=== PATIENT | male | born 1960 | race Caucasian/White ===

== ENCOUNTER 2017-05-19 11:43 | Inpatient (IN) | payer BC ==
[~2017-05-19] VITALS: Ht 177.8 cm; Wt 106.0 kg
[~2017-05-19 11:43] MED LIST: ACTOS30 MG; ALAVERT10 MG PO; ALBUTEROL17 GM INH; AMARYL2 M1 PO; ASPIR-LOW81 MG; ATENOLOL50 MG; COREG12.5 MG PO; COREG3.125 MG; FLEXERIL10 MG PO; GLUCOPHAGE1000 M1 PO; LISINOPRIL10 MG; LISINOPRIL10 MG PO; MULTIVITAMIN1 TAB PO; NORCO 10/325 TA1 TAB PO; NORCO 5/325 TAB1 TAB PO; NORCO 5/3251 TAB PO; PLAVIX75 MG PO; SINGULAIR10 MG; ZOCOR20 MG; ZOCOR40 MG
[2017-05-19] MEDS ORDERED: COZAAR50 M1 PO (11:56)
[2017-05-19] MEDS ORDERED: MAGNESIUM (11:57)
[2017-05-19 12:49] LABS: BASO % 0.2 % (0-2); HCT-HEMATOCRIT 43.6 % (36.0-53.5); HGB-HEMOGLOBIN 15.8 gm/dl (13.5-17.0); IMMATURE GRANULOCYTES ABSOLUTE 0.01 tho/cmm (0-0.03); IMMATURE GRANULOCYTES PERCENT 0.2 % (0-0.3); LYMPH % 13.8 % (20-45); LYMPH ABSOLUTE COUNT 0.7 tho/cmm (0.8-4.5); MCH (MEAN CORPUSCULAR HGB) 32.7 pg (28.0-32.0); MCHC MEAN CORPUSCULAR HGB CONC 36.2 % (32.0-36.0); MCV (MEAN CELL VOLUME) 90.3 fl (82.0-96.0); MONOCYTE ABSOLUTE COUNT 0.4 tho/cmm (0.0-1.2); NEUTROPHIL ABSOLUTE COUNT 3.8 tho/cmm (1.6-8.0); NEUTROPHIL-AUTOMATED 3.8 tho/cmm (1.6-8.0); NEUTROPHILS % 76.8 % (40-80); PLATELET COUNT 98 tho/cmm (150-450); RED BLOOD COUNT 4.83 mil/cmm (4.40-5.70); RED CELL DISTRIBUTION WIDTH 12.2 % (12.4-16.4)
[2017-05-19 12:50] LABS: WHITE BLOOD COUNT 4.9 tho/cmm (4.0-10.0)
[2017-05-19 13:13] LABS: ALBUMIN 3.8 g/dl (3.5-5.0); ALKALINE PHOSPHATASE 65 U/L (33-138); ALT/SGPT 24 U/L (12-78); ANION GAP 11 mmol/L (0-20); AST/SGOT 24 U/L (10-40); BILIRUBIN,TOTAL 1.9 mg/dl (0.0-1.5); BLOOD UREA NITROGEN 15 mg/dl (6-24); CALCIUM 7.9 mg/dl (8.5-10.5); CARBON DIOXIDE-VENOUS 24 mmol/L (22-32); CHLORIDE 98 mmol/l (96-110); CREATININE 1.18 mg/dl (0.60-1.30); GLUCOSE 158 mg/dL (70-110); POTASSIUM 3.7 mmol/L (3.7-5.1); SODIUM 129 mmol/L (135-145); eGFR VALUE FOR BLACK 78 mL/Min
[2017-05-19 14:09] LABS: URINE APPEARANCE CLEAR; URINE BILIRUBIN NEGATIVE (NEG); URINE BLOOD NEGATIVE (NEG); URINE COLOR DARK YELLOW; URINE GLUCOSE (UA) NEGATIVE (NEG); URINE KETONE MODERATE (NEG); URINE LEUKOCYTE ESTERASE NEGATIVE (NEG); URINE NITRITE NEGATIVE (NEG); URINE PROTEIN MODERATE (NEG)
[2017-05-19 14:15] LABS: URINE EPITHELIAL CELLS RARE /[HPF] (0-10); URINE MUCUS 2+; URINE RBC RARE /[HPF] (0-5)
[2017-05-20 07:06] LABS: ANION GAP 11 mmol/L (0-20); BLOOD UREA NITROGEN 13 mg/dl (6-24); CALCIUM 7.4 mg/dl (8.5-10.5); CARBON DIOXIDE-VENOUS 25 mmol/L (22-32); CHLORIDE 102 mmol/l (96-110); CREATININE 1.05 mg/dl (0.60-1.30); GLUCOSE 157 mg/dL (70-110); POTASSIUM 3.8 mmol/L (3.7-5.1); SODIUM 134 mmol/L (135-145); eGFR VALUE FOR BLACK >90 mL/Min
[2017-05-20 07:48] LABS: BASO % 0.2 % (0-2); HCT-HEMATOCRIT 36.2 % (36.0-53.5); HGB-HEMOGLOBIN 12.8 gm/dl (13.5-17.0); LYMPH % 11.9 % (20-45); LYMPH ABSOLUTE COUNT 0.5 tho/cmm (0.8-4.5); MCH (MEAN CORPUSCULAR HGB) 32.3 pg (28.0-32.0); MCHC MEAN CORPUSCULAR HGB CONC 35.4 % (32.0-36.0); MCV (MEAN CELL VOLUME) 91.4 fl (82.0-96.0); MEAN PLATELET VOLUME 10.8 cmc (9.4-12.4); MONO % 7.2 % (0-12); MONOCYTE ABSOLUTE COUNT 0.3 tho/cmm (0.0-1.2); NEUTROPHIL ABSOLUTE COUNT 3.6 tho/cmm (1.6-8.0); NEUTROPHIL-AUTOMATED 3.6 tho/cmm (1.6-8.0); NEUTROPHILS % 80.7 % (40-80); PLATELET COUNT 93 tho/cmm (150-450); RED BLOOD COUNT 3.96 mil/cmm (4.40-5.70); RED CELL DISTRIBUTION WIDTH 12.4 % (12.4-16.4); WHITE BLOOD COUNT 4.5 tho/cmm (4.0-10.0)
[2017-05-21 06:18] LABS: HCT-HEMATOCRIT 36.3 % (36.0-53.5); LYMPH % 10.8 % (20-45); LYMPH ABSOLUTE COUNT 0.4 tho/cmm (0.8-4.5); MCH (MEAN CORPUSCULAR HGB) 32.3 pg (28.0-32.0); MCHC MEAN CORPUSCULAR HGB CONC 35.8 % (32.0-36.0); MCV (MEAN CELL VOLUME) 90.1 fl (82.0-96.0); MEAN PLATELET VOLUME 10.5 cmc (9.4-12.4); MONO % 1.9 % (0-12); MONOCYTE ABSOLUTE COUNT 0.1 tho/cmm (0.0-1.2); NEUTROPHIL ABSOLUTE COUNT 3.2 tho/cmm (1.6-8.0); NEUTROPHIL-AUTOMATED 3.2 tho/cmm (1.6-8.0); NEUTROPHILS % 87.3 % (40-80); PLATELET COUNT 80 tho/cmm (150-450); RED BLOOD COUNT 4.03 mil/cmm (4.40-5.70); RED CELL DISTRIBUTION WIDTH 12.3 % (12.4-16.4); WHITE BLOOD COUNT 3.6 tho/cmm (4.0-10.0)
[2017-05-21 06:40] LABS: ANION GAP 14 mmol/L (0-20); BLOOD UREA NITROGEN 19 mg/dl (6-24); C-REACTIVE PROTEIN 1.6 mg/dl (0-0.9); CALCIUM 7.9 mg/dl (8.5-10.5); CARBON DIOXIDE-VENOUS 22 mmol/L (22-32); CHLORIDE 104 mmol/l (96-110); CREATININE 0.95 mg/dl (0.60-1.30); GLUCOSE 215 mg/dL (70-110); POTASSIUM 4.1 mmol/L (3.7-5.1); SODIUM 136 mmol/L (135-145); eGFR VALUE FOR BLACK >90 mL/Min
[2017-05-21 07:22] LABS: PROCALCITONIN <0.05 ng/ml (0.05-0.09)
[2017-05-22 05:46] LABS: HCT-HEMATOCRIT 32.4 % (36.0-53.5); HGB-HEMOGLOBIN 11.4 gm/dl (13.5-17.0); IMMATURE GRANULOCYTES ABSOLUTE 0.01 tho/cmm (0-0.03); IMMATURE GRANULOCYTES PERCENT 0.3 % (0-0.3); LYMPH % 14.1 % (20-45); LYMPH ABSOLUTE COUNT 0.4 tho/cmm (0.8-4.5); MCHC MEAN CORPUSCULAR HGB CONC 35.2 % (32.0-36.0); MEAN PLATELET VOLUME 10.9 cmc (9.4-12.4); MONO % 2.6 % (0-12); MONOCYTE ABSOLUTE COUNT 0.1 tho/cmm (0.0-1.2); NEUTROPHIL ABSOLUTE COUNT 2.5 tho/cmm (1.6-8.0); NEUTROPHIL-AUTOMATED 2.5 tho/cmm (1.6-8.0); PLATELET COUNT 95 tho/cmm (150-450); RED BLOOD COUNT 3.56 mil/cmm (4.40-5.70); RED CELL DISTRIBUTION WIDTH 12.5 % (12.4-16.4); WHITE BLOOD COUNT 3.1 tho/cmm (4.0-10.0)
[2017-05-22 05:54] LABS: ANION GAP 13 mmol/L (0-20); BLOOD UREA NITROGEN 14 mg/dl (6-24); CALCIUM 7.7 mg/dl (8.5-10.5); CARBON DIOXIDE-VENOUS 23 mmol/L (22-32); CHLORIDE 108 mmol/l (96-110); CREATININE 0.76 mg/dl (0.60-1.30); GLUCOSE 161 mg/dL (70-110); POTASSIUM 3.5 mmol/L (3.7-5.1); SODIUM 140 mmol/L (135-145); eGFR VALUE FOR BLACK >90 mL/Min
[2017-05-22] MEDS ORDERED: TYLENOL325 M2 PO (12:36)
[2017-05-22] MEDS ORDERED: LEVAQUIN750 M1 PO (12:36)
[2017-05-22] MEDS ORDERED: MUCINEX600 M1 PO (12:37)
[2017-05-22] MEDS ORDERED: PREDNISONE10 M1 PO (12:37)
[2017-05-22] MEDS ORDERED: AMBIEN10 M1 PO (12:38)
== END 2017-05-22 18:30 | DRG 153 ==
LOC: EDMED 11:43 → EMR2 15:45 → 5WF 15:45
PROVIDERS: Emergency Medicine; Family Medicine; Internal Medicine; ADMIT Hospitalist
PROC: 5A09457 Assistance with Respiratory Ventilation, 24-96 Consecutive Hours, Continuous Positive Airway Pressure (ICD-10-PCS; 2017-05-19)
PROC: 07DR3ZX Extraction of Iliac Bone Marrow, Percutaneous Approach, Diagnostic (ICD-10-PCS; principal; 2017-05-22)
DX: J06.9 Acute upper respiratory infection, unspecified (principal); C91.40 Hairy cell leukemia not having achieved remission; D69.6 Thrombocytopenia, unspecified; E11.9 Type 2 diabetes mellitus without complications; I10 Essential (primary) hypertension; J01.90 Acute sinusitis, unspecified; I25.10 Atherosclerotic heart disease of native coronary artery without angina pectoris; E78.5 Hyperlipidemia, unspecified; Z79.84 Long term (current) use of oral hypoglycemic drugs
CPT/HCPCS: C1830; G0364; J0456; J0696; J1170; J1650; J1815; J2250; J2405; J3010; J7030; J7050; J7512